=== PATIENT | female | born 1945 | race Caucasian/White ===

== ENCOUNTER 2016-07-18 16:48 | Inpatient (IN) | payer MEDICARE, MEDICAID ==
[~2016-07-18] VITALS: Ht 162.6 cm; Wt 72.3 kg
[~2016-07-18 16:48] MED LIST: ATEN25TA PO; CLON0.5T PO; CLOP75TA2 PO; DEXL60CA3 PO; DICL100G3 TP; DULO60CA45 PO; EZET10TA PO; FLUT1DIS3 IH; HYDR-3026 PO; IBAN150T PO; ISOS60TA4 PO; METO-295 PO; NAPR500T6 PO; OLOP2.5D EACHEYE; OMEP20CA10 PO; QUET150T PO; RAME8TAB9 PO; SIMV40TA5 PO; SUCR1TAB PO; TELM40TA2 PO; TROS20TA3 PO
[2016-07-18] MEDS ORDERED: ONDANSETRON HCL/PF 4 MG/2 ML VIAL IVP ONE (17:00)
[2016-07-18] MEDS ORDERED: IV NS 0.9% 500 ML BAG IV ONE (17:00)
--- NOTE | 2016-07-18 17:05 | NUR ---
PT BIB RA C/O COUGH AND UTI X2 WEEKS. PT REPORTS SHE WAS SEEN BY HER PMD THIS MORNING AND WAS GIVEN "SHOTS" TO TAKE AT HOME. ALREADY COMPLETED 1 ROUND OF PO ABX. RESP EVEN UNLABORED BUT WITH FREQUENT NON-PRODUCTIVE COUGH. SKIN HOT NONDIAPHORETIC. IN ER BED 08 ON MONITOR.
[2016-07-18] MEDS ORDERED: ONDANSETRON HCL/PF 4 MG/2 ML VIAL ONE (17:10)
[2016-07-18] MEDS ORDERED: ACETAMINOPHEN 325 MG TABLET ONE (17:10)
[2016-07-18] MEDS ORDERED: IV NS 0.9% 500 ML IV ONE (17:10)
[2016-07-18] MEDS ORDERED: IV SET PRIMARY 1 EA INFUS.SET MC ONE (17:10)
[2016-07-18] MEDS ORDERED: ACETAMINOPHEN 650 MG/20.3 ML UDC PO ONE (17:30)
[2016-07-18 17:36] LABS: BASOPHILS % (AUTO) 0.1 % (0.0-2.0); CALCIUM, SERUM 9.1 mg/dL (8.5-10.1); EOSINOPHILS % (AUTO) 0.1 % (0.0-6.0); HEMATOCRIT 25 % (33-45); HEMOGLOBIN 8.4 g/dL (11.5-14.8); LYMPHOCYTES % (AUTO) 4.9 % (20.0-44.0); MEAN CORPUSCULAR HEMOGLOBIN 28 PG (26.0-33.0); MEAN CORPUSCULAR HGB CONC 34 g/dl (31.0-36.0); MEAN CORPUSCULAR VOLUME 84 fL (82-100); MONOCYTES # (AUTO) 1.4 /CMM (0.1-1.30); MONOCYTES % (AUTO) 6.8 % (2.0-12.0); NEUTROPHILS # (AUTO) 18.5 /CMM (1.8-8.9); NEUTROPHILS % (AUTO) 88.1 % (43.0-81.0); PLATELET COUNT (AUTO) 522 /CMM (150-450); POTASSIUM 3.6 mmol/L (3.5-5.1); RDW COEFFICIENT OF VARIATION 12.2 (11.5-15.0); RED BLOOD CELL COUNT(AUTO) 2.95 MIL/uL (4.0-5.2); WHITE BLOOD COUNT (AUTO) 20.9 K/uL (4.3-11.0)
[2016-07-18 17:42] LABS: ALBUMIN 2.5 g/dL (3.4-5.0); BILIRUBIN,DIRECT 0.6 mg/dL (0.0-0.2); BILIRUBIN,TOTAL 2.7 mg/dL (0.2-1.0); INR 1.08 (0.87-1.13); PROTHROMBIN TIME 11.2 SECS (9.5-12.7); TOTAL PROTEIN, SERUM 7.8 g/dL (6.4-8.2)
--- NOTE | 2016-07-18 17:59 | NUR ---
PT ATTEMPTING TO PROVIDE URINE SAMPLE BY CLEAN CATCH BUT "IT WENT SIDEWAYS".
[2016-07-18] MEDS ORDERED: CEFEPIME 1 GM in IV D5W 50 ML IV ONE (18:00)
[2016-07-18] MEDS ORDERED: VANCOMYCIN 1 GM in IV D5W 250 ML IV ONE (18:00)
[2016-07-18] MEDS ORDERED: ALBUTEROL FS 2.5 MG/0.5 ML VIAL.NEB ONE (18:07)
[2016-07-18] MEDS ORDERED: IV SET PRIMARY PUMP SET 1 EA INFUS.SET MC ONE (18:10)
[2016-07-18] MEDS ORDERED: ALBUTEROL FS 2.5 MG/0.5 ML VIAL.NEB NEB ONE (18:30)
[2016-07-18 18:32] LABS: APPEARANCE,URINE Clear (CLEAR); BLOOD, URINE Large Ery/uL (NEGATIVE); COLOR,URINE Yellow (YELLOW); KETONES,URINE Negative (NEGATIVE); LEUKOCYTE ESTERASE ,URINE Negative (NEGATIVE); NITRITE, URINE Negative (NEGATIVE); PH,URINE 5.5 (5.0-8.0); PROTEIN,URINE 30 mg/dl (NEGATIVE); UGLUCOSE Negative (NEGATIVE); UROBILINOGEN,URINE >=8.0 EU/dL (0.2)
[2016-07-18 18:43] LABS: BILIRUBIN,URINE SMALL (NEGATIVE)
[2016-07-18 18:45] LABS: ADD URINE CULTURE YES; BACTERIA,URINE Moderate /HPF (None Seen); SQUAMOUS EPITHELIAL CELL,UR Few /HPF (None Seen); WBC,URINE 0-2 /HPF (0-3)
[2016-07-18 18:49] LABS: BAND % (MANUAL) 8 % (0.0-5.0); LYMPHOCYTES % (MANUAL) 8 % (16-48); NEUTROPHILS % (MANUAL) 76 (42-76)
[2016-07-18 18:50] LABS: BASOPHILS % (MANUAL) 0 % (0.0-2.0); EOSINOPHILS % (MANUAL) 0 % (0-4); MONOCYTES % (MANUAL) 4 % (0-11.0); PLATELET ESTIMATE ADEQUATE; REACTIVE LYMPHOCYTES 4 % (0-0)
--- NOTE | 2016-07-18 19:17 | NUR ---
PAGED MARTI WALLER WOOL BROKER PANEL
--- NOTE | 2016-07-18 19:21 | NUR ---
RECEIVED REPORT FROM ER REGARDING NEW ADMISSION, AWAITING ARRIVAL IN UNIT.
[2016-07-18 19:46] VITALS: BP 130/59
--- NOTE | 2016-07-18 19:46 | NUR ---
RECEIVED PATIENT FROM ER, WITH DX OF PNEUMONIA, ALERT AND ORIENTED X4, CALM, NO SOB, NOTED NON-PRODUCTIVE COUGH, 02 SAT ON ROOM AIR DENIES CHEST PAIN, NO OTHER COMPLAIN OF PAIN, ABDOMEN SOFT AND NON-TENDER, ACTIVE BOWEL SOUNDS, ABLE TO VERBALIZE NEEDS, MEDICAL HISTORY GIVEN BY PATIENT, RIGHT AC #18 GAUGE IS PATENT, FLUSHED, DRESSING INTACT. GENERAL SKIN CONDITION IS CLEAR, NO OPEN WOUNDS, NO DISCOLORATION. CONTINENT OF BOWEL AND BLADDER. AMBULATES WITH ONE PERSON ASSIST, PROVIDED BEDSIDE COMMODE. NEEDS HELP GETTING OUT OF BED. ORIENTED TO ROOM, LIGHTS AND USE OF CALL LIGHT.
--- NOTE | 2016-07-18 20:24 | NUR ---
Report given to archana Chapman for nader.
--- NOTE | 2016-07-18 20:47 | NUR ---
Transported to room 325-2 via [facility] protocol, no incident noted. no futher complaints.
[2016-07-18] MEDS ORDERED: MAGNESIUM HYDROXIDE 30 ML UDC PO PRN (21:00)
[2016-07-18] MEDS ORDERED: ACETAMINOPHEN 650 MG/SUPP.RECT RC PRN (21:00)
[2016-07-18] MEDS ORDERED: ACETAMINOPHEN 325 MG TABLET PO PRN (21:00)
[2016-07-18] MEDS ORDERED: ONDANSETRON HCL/PF 4 MG/2 ML VIAL IVP PRN (21:00)
[2016-07-18] MEDS ORDERED: Z GUARD REMEDY 2 OZ OINT TP PRN (21:00)
[2016-07-18] MEDS ORDERED: MAG HYDROX/AL HYDROX/SIMETH 30 ML UDC PO PRN (21:00)
[2016-07-18] MEDS ORDERED: TEMAZEPAM 15 MG CAPSULE PO PRN (21:00)
[2016-07-18] MEDS: CEFEPIME 1 GM in IV D5W 50 ML IV SCH (21:00)
[2016-07-18] MEDS ORDERED: ENOXAPARIN SODIUM 40 MG/0.4 ML DISP.SYRIN SQ ONE (21:22)
[2016-07-18] MEDS ORDERED: IV NS 0.9% 1,000 ML ONE (21:39)
[2016-07-18] MEDS ORDERED: SECONDARY IV SET 1 EA INFUS.SET MC ONE (21:39)
[2016-07-18] MEDS: ENOXAPARIN SODIUM 40 MG/0.4 ML DISP.SYRIN SQ SCH (21:46)
[2016-07-18] MEDS: IV NS 0.9% 1,000 ML IV PRN (21:58)
[2016-07-18] MEDS ORDERED: TEMAZEPAM 7.5 MG CAPSULE PO PRN (23:00)
[2016-07-19] VITALS (16 sets, daily range): BP systolic 110–148; BP diastolic 52–91
[2016-07-19] MEDS ORDERED: IV D5W 50 ML IV ONE (01:40)
--- NOTE | 2016-07-19 01:57 | NUR ---
PATIENT COMPLAINING OF NON-PRODUCTIVE COUGH, NEW ORDER OF ROBITUSSIN 5ML PO Q4HRS PRN. ORDER NOTED AND CARRIED OUT.
[2016-07-19] MEDS ORDERED: GUAIFENESIN/D-METHORPHAN HB 5 ML UDC ONE (02:00)
[2016-07-19] MEDS ORDERED: GUAIFENESIN/CODEINE 10 ML UDC PO PRN (02:00)
[2016-07-19] MEDS: GUAIFENESIN/D-METHORPHAN HB 5 ML UDC PO PRN ×3 (02:05→21:11)
--- NOTE | 2016-07-19 02:19 | NUR ---
PATIENT GIVEN 02 VIA NC, 02 SAT AT ROOM AIR DROPPED TO 93%.
[2016-07-19] MEDS ORDERED: CEFEPIME 1 GM VIAL ONE (03:26)
--- NOTE | 2016-07-19 03:46 | NUR ---
PATIENT RESTING COMFORTABLY IN BED, CALL LIGHT WITHIN REACH.
[2016-07-19] MEDS ORDERED: IPRATROPIUM NEB FS 0.5 MG/2.5 ML AMPUL.NEB NEB PRN (04:00)
[2016-07-19] MEDS ORDERED: ALBUTEROL FS 2.5 MG/0.5 ML VIAL.NEB NEB PRN (04:00)
[2016-07-19] MEDS: CEFEPIME 1 GM in IV D5W 50 ML IV SCH ×3 (04:29→22:04)
[2016-07-19] MEDS ORDERED: ACETAMINOPHEN 325 MG TABLET ONE (04:41)
--- NOTE | 2016-07-19 04:50 | NUR ---
GIVEN TYLENOL 650 MG PO PRN FOR ELEVATED TEMPERATURE OF 100.2F, KEPT SAFE AND COMFORTABLE, CALL LIGHT WITHIN REACH.
--- NOTE | 2016-07-19 05:30 | NUR ---
TEMPERATURE TAKEN AFTER TYLENOL 650 MG PO, 99.5F
--- NOTE | 2016-07-19 06:43 | NUR ---
PATIENT IN BED, ALERT AND AWAKE, CALM, NO RESPIRATORY DISTRESS, NON PRODUCTIVE COUGH NOTED, ON 02 AT 2LPM VIA NC, SATURATION 97%, AFEBRILE AT THIS TIME, LATEST TEMPERATURE 98.3F. LEFT AC PERIPHERAL LINE IS PATENT AND INFUSING WELL, ALL DUE MEDICATIONS GIVEN, CALL LIGHT WITHIN REACH.
[2016-07-19 06:46] LABS: THYROID STIMULATING HORMONE 0.317 uIU/mL (0.358-3.74)
[2016-07-19 06:48] LABS: BASOPHILS % (AUTO) 0.1 % (0.0-2.0); EOSINOPHILS % (AUTO) 0.2 % (0.0-6.0); HEMATOCRIT 23 % (33-45); HEMOGLOBIN 7.4 g/dL (11.5-14.8); LYMPHOCYTES # (AUTO) 0.9 /CMM (0.8-4.8); LYMPHOCYTES % (AUTO) 5.9 % (20.0-44.0); MAGNESIUM 1.8 mg/dL (1.8-2.4); MEAN CORPUSCULAR HEMOGLOBIN 28 PG (26.0-33.0); MEAN CORPUSCULAR HGB CONC 33 g/dl (31.0-36.0); MEAN CORPUSCULAR VOLUME 86 fL (82-100); MONOCYTES # (AUTO) 1.5 /CMM (0.1-1.30); MONOCYTES % (AUTO) 9.3 % (2.0-12.0); NEUTROPHILS # (AUTO) 13.4 /CMM (1.8-8.9); NEUTROPHILS % (AUTO) 84.5 % (43.0-81.0); PHOSPHORUS 2.9 mg/dL (2.5-4.9); PLATELET COUNT (AUTO) 419 /CMM (150-450); POTASSIUM 3.5 mmol/L (3.5-5.1); RDW COEFFICIENT OF VARIATION 13.2 (11.5-15.0); RED BLOOD CELL COUNT(AUTO) 2.62 MIL/uL (4.0-5.2); WHITE BLOOD COUNT (AUTO) 15.9 K/uL (4.3-11.0)
--- NOTE | 2016-07-19 07:30 | NUR ---
PHOTOGRAPHIC DOUBLE NOTES PATIENT IN BED, ALERT AND ORIENTED, OBSERVED WITH COUGHING, NO SOB, DENIES PAIN OR DISCOMFORT AT THIS TIME, ON IVF INFUSING AT 75CC/HR, NEEDS ATTENDED AND MET, BED LOW/LOCKED POSITION, SIDERAILS X2 UP, CALL LIGHT WITHIN REACH, WILL CONTINUE TO MONITOR.
[2016-07-19] MEDS: SUCRALFATE 1 G TABLET PO SCH (08:34)
[2016-07-19] MEDS: DULOXETINE HCL 30 MG CAPSULE.DR PO SCH (08:34)
[2016-07-19] MEDS: VALSARTAN 40 MG TABLET PO SCH ×2 (08:35→21:11)
[2016-07-19] MEDS: PANTOPRAZOLE 40 MG TABLET.DR PO SCH (08:35)
[2016-07-19] MEDS: ATENOLOL 25 MG TABLET PO SCH ×2 (08:36→17:26)
[2016-07-19] MEDS: QUETIAPINE FUMARATE 100 MG TABLET PO SCH (08:36)
[2016-07-19] MEDS: CLOPIDOGREL BISULFATE 75 MG TABLET PO SCH (08:37)
[2016-07-19] MEDS: EZETIMIBE 10 MG TABLET PO SCH (08:37)
[2016-07-19] MEDS: ISOSORBIDE MONONITRATE 20 MG TABLET PO SCH (08:59)
[2016-07-19] MEDS ORDERED: VANCOMYCIN 0.75 GM in IV D5W 250 ML IV SCH (09:00)
[2016-07-19] MEDS ORDERED: FEE PK DOSING 1 MIN EA MC ONE (09:06)
[2016-07-19] MEDS ORDERED: SECONDARY IV SET 1 EA INFUS.SET MC ONE (09:29)
[2016-07-19] MEDS: OLOPATADINE HCL 0.1% OPHTH BOTTLE EACHEYE SCH (09:34)
[2016-07-19] MEDS: FLUTICASONE/SALMETEROL DISKUS IH SCH ×2 (09:34→17:26)
--- NOTE | 2016-07-19 09:45 | NUR ---
MASTER MECHANIC NOTES PATIENT SEEN BY MARTI WALLER NP AND RECEIVED NEW ORDERS. ORDER NOTED AND CARRIED OUT. MARTI HAYDEN DISCUSSED BLOOD TRANSFUSION WITH THE PATIENT AND PATIENT AGREED, CONSENT SIGNED.
[2016-07-19] MEDS: IV NS 0.9% 1,000 ML IV PRN (10:54)
[2016-07-19] MEDS ORDERED: BLOOD IV SET 1 EA INFUS.SET MC ONE (11:33)
[2016-07-19 11:35] LABS: BASOPHILS % (AUTO) 0.1 % (0.0-2.0); EOSINOPHILS # (AUTO) 0.1 /CMM (0.0-0.7); EOSINOPHILS % (AUTO) 0.5 % (0.0-6.0); HEMATOCRIT 23 % (33-45); HEMOGLOBIN 7.4 g/dL (11.5-14.8); LYMPHOCYTES # (AUTO) 1.1 /CMM (0.8-4.8); LYMPHOCYTES % (AUTO) 7.8 % (20.0-44.0); MEAN CORPUSCULAR HEMOGLOBIN 28 PG (26.0-33.0); MEAN CORPUSCULAR HGB CONC 32 g/dl (31.0-36.0); MEAN CORPUSCULAR VOLUME 86 fL (82-100); MONOCYTES # (AUTO) 1.3 /CMM (0.1-1.30); MONOCYTES % (AUTO) 9.3 % (2.0-12.0); NEUTROPHILS # (AUTO) 11.3 /CMM (1.8-8.9); NEUTROPHILS % (AUTO) 82.3 % (43.0-81.0); PLATELET COUNT (AUTO) 405 /CMM (150-450); RDW COEFFICIENT OF VARIATION 13.3 (11.5-15.0); RED BLOOD CELL COUNT(AUTO) 2.66 MIL/uL (4.0-5.2); WHITE BLOOD COUNT (AUTO) 13.8 K/uL (4.3-11.0)
[2016-07-19] MEDS ORDERED: IV NS 0.9% 250 ML IV ONE (14:00)
--- NOTE | 2016-07-19 14:42 | NUR ---
ENVIRONMENTAL ISSUES INSTRUCTOR NOTES PATIENT STARTED ON BLOOD TRANSFUSION, CONSENT SIGNED AND PLACED IN CHART, VITAL SIGNS STABLE, WILL CLOSELY MONITOR FOR ADVERSE SIDE EFFECT, CALL LIGHT PLACED WITHIN REACH, SAFETY MEASURES IN PLACED, SON AT BEDSIDE.
[2016-07-19] MEDS ORDERED: LEVOFLOXACIN 750 MG /D5W 150ML 150 ML IV SCH (15:30)
[2016-07-19] MEDS ORDERED: AZITHROMYCIN 250 MG TABLET PO ONE (16:00)
--- NOTE | 2016-07-19 16:17 | NUR ---
MOTOR VEHICLES SUPERVISOR NOTES BLOOD TRANSFUSION ONGOING AT THIS TIME, IN STABLE CONDITION, NO ADVERSE EFECT NOTED, PATIENT DENIES ANY HEADACHE, NAUSEA, VOMITING, OR ANY DISTRESS AT THIS TIME. VITAL SIGNS STABLE, WILL CONTINUE TO MONITOR.
--- NOTE | 2016-07-19 18:46 | NUR ---
MIXER AND SCALER NOTES PATIENT COMPLETED BLOOD TRANSFUSION WITH NO REACTION, STILL NEEDS STOOL SAMPLE AND PATIENT AWARE, IVF INFUSING 75ML/HR AND TOLERATING WELL, VITAL SIGNS STABLE, RECEIVED ASSISTANCE WITH ADLS, CALL LIGHT PLACED WITHIN REACH, SAFETY MEASURES IN PLACED, WILL ENDORSE TO CHIEF ENGINEERING DIVISION FOR MARAL.
[2016-07-19] MEDS: ALBUTEROL FS 2.5 MG/0.5 ML VIAL.NEB NEB SCH (19:30)
[2016-07-19] MEDS: IPRATROPIUM NEB FS 0.5 MG/2.5 ML AMPUL.NEB NEB SCH (19:30)
--- NOTE | 2016-07-19 19:30 | NUR ---
REFUSED BREATHING TX AT THIS TIME, EXPLAINED TO PATIENT RISKS AND BENEFITS, OFFERED X3. WILL TRY AGAIN ON THE NEXT SCHEDULE
--- NOTE | 2016-07-19 20:00 | NUR ---
RECEIVED PATIENT IN BED, ALERT AND ORIENTED X4, CALM, NO SOB, ON 2LPM VIA NC, 02 SAT 97%, DENIES ANY PAIN AT THIS TIME, S/P BLOOD TRANSFUSION, NO ADVERSE SIDE EFFECTS NOTED. ABLE TO AMBULATE TO THE TOILET WITH SUPERVISION, V/S WITHIN NORMAL LIMITS, KEPT SAFE AND COMFORTABLE, CALL LIGHT WITHIN REACH.
--- NOTE | 2016-07-19 21:00 | NUR ---
PATIENT NOTIFIED RN, RIGHT AC PERIPHERAL LINE IS LEAKING. WILL START NEW IV LINE.
[2016-07-19] MEDS: SIMVASTATIN 40 MG TABLET PO SCH (21:11)
[2016-07-19] MEDS: ENOXAPARIN SODIUM 40 MG/0.4 ML DISP.SYRIN SQ SCH (21:13)
[2016-07-20 00:09] VITALS: BP 126/52
[2016-07-20] MEDS: IPRATROPIUM NEB FS 0.5 MG/2.5 ML AMPUL.NEB NEB SCH ×4 (01:25→19:50)
[2016-07-20] MEDS: ALBUTEROL FS 2.5 MG/0.5 ML VIAL.NEB NEB SCH ×4 (01:25→19:50)
[2016-07-20] MEDS: GUAIFENESIN/D-METHORPHAN HB 5 ML UDC PO PRN (02:43)
--- NOTE | 2016-07-20 02:47 | NUR ---
PATIENT COMPLAINING OF DRY, NON-PRODUCTIVE COUGH, GIVEN ROBITUSSIN 5ML PO PRN, KEPT HOB ELEVATED, KEPT COMFORTABLE, CALL LIGHT WITHIN REACH.
[2016-07-20] MEDS: IV NS 0.9% 1,000 ML IV PRN (03:44)
[2016-07-20 04:00] VITALS: BP 116/51
[2016-07-20] MEDS: CEFEPIME 1 GM in IV D5W 50 ML IV SCH ×3 (04:05→22:05)
--- NOTE | 2016-07-20 06:35 | NUR ---
PATIENT IN BED, ALERT AND ORIENTED X4, CALM, NO SOB, NO DISTRESS, ON 2LPM VIA NC TO KEEP 02 SAT > 93%, DENIES ANY PAIN AT THIS TIME, WITH EPISODES OF DRY COUGH, PROVIDED COUGH MEDICATION, ASSISTED TO TOILET, ALL DUE MEDICATIONS GIVEN, NEEDS ATTENDED, CALL LIGHT WITHIN REACH.
[2016-07-20 07:16] LABS: BASOPHILS % (AUTO) 0.1 % (0.0-2.0); EOSINOPHILS # (AUTO) 0.1 /CMM (0.0-0.7); HEMATOCRIT 27 % (33-45); HEMOGLOBIN 8.6 g/dL (11.5-14.8); LYMPHOCYTES # (AUTO) 1.4 /CMM (0.8-4.8); LYMPHOCYTES % (AUTO) 10.8 % (20.0-44.0); MEAN CORPUSCULAR HEMOGLOBIN 28 PG (26.0-33.0); MEAN CORPUSCULAR HGB CONC 32 g/dl (31.0-36.0); MEAN CORPUSCULAR VOLUME 88 fL (82-100); MONOCYTES # (AUTO) 1.1 /CMM (0.1-1.30); MONOCYTES % (AUTO) 8.6 % (2.0-12.0); NEUTROPHILS # (AUTO) 10.2 /CMM (1.8-8.9); NEUTROPHILS % (AUTO) 79.5 % (43.0-81.0); PLATELET COUNT (AUTO) 381 /CMM (150-450); RDW COEFFICIENT OF VARIATION 13.1 (11.5-15.0); RED BLOOD CELL COUNT(AUTO) 3.06 MIL/uL (4.0-5.2); WHITE BLOOD COUNT (AUTO) 12.8 K/uL (4.3-11.0)
--- NOTE | 2016-07-20 07:30 | NUR ---
MS RN RECEIVED ON BED, AWAKE,ALERT,ORIENTED X 4, NOT IN ANY FORM OF DISTRESS, RESPIRATIONS EVEN AND UNLABORED,NO SOB NOTED. ABDOMEN SOFT, POSITIVE BOWEL SOUNDS, DENIES PAIN AT THIS TIME, ALL NEEDS ATTENDED.
[2016-07-20 08:00] VITALS: BP 142/82
[2016-07-20 08:01] LABS: CALCIUM, SERUM 8.2 mg/dL (8.5-10.1); CREATININE 0.8 mg/dL (0.6-1.3); POTASSIUM 3.6 mmol/L (3.5-5.1)
--- NOTE | 2016-07-20 08:40 | NUR ---
MS AMARO BREAKFAST SERVED, DUE MEDS GIVEN, TOLERATED WELL.
[2016-07-20] MEDS: CLOPIDOGREL BISULFATE 75 MG TABLET PO SCH (08:42)
[2016-07-20] MEDS: EZETIMIBE 10 MG TABLET PO SCH (08:43)
[2016-07-20] MEDS: VALSARTAN 40 MG TABLET PO SCH ×2 (08:44→22:10)
[2016-07-20] MEDS: ATENOLOL 25 MG TABLET PO SCH ×2 (08:45→17:13)
[2016-07-20] MEDS: PANTOPRAZOLE 40 MG TABLET.DR PO SCH (08:46)
[2016-07-20] MEDS: SUCRALFATE 1 G TABLET PO SCH (08:46)
[2016-07-20] MEDS: DULOXETINE HCL 30 MG CAPSULE.DR PO SCH (08:46)
[2016-07-20] MEDS: ISOSORBIDE MONONITRATE 20 MG TABLET PO SCH (08:46)
[2016-07-20] MEDS: QUETIAPINE FUMARATE 100 MG TABLET PO SCH (08:47)
[2016-07-20] MEDS: FLUTICASONE/SALMETEROL DISKUS IH SCH ×2 (08:58→17:12)
[2016-07-20] MEDS: OLOPATADINE HCL 0.1% OPHTH BOTTLE EACHEYE SCH (08:58)
--- NOTE | 2016-07-20 15:06 | NUR ---
SW received a call from nursing drapery supervisor Eli requesting for SW to speak with pt. per BLENDING TANK HELPER Gary regarding her housing situation. Pt. lives on the 4th floor and Gary requested if SW could assist pt. in some way to move to the first floor in her apartment building. SW met with pt. bedside. Pt. is A&O x 4. Pt. is friendly and polite with SW during the assessment. Pt. informed SW she lives in a Section 8 housing apartment in [place] and is comfortable at this time in her two bedroom apartment. Pt. informed SW she does not want to cause any issues with her Section 8 housing and end up losing it. Pt. informed SW she has her daughter who can assist her as well. OBDULIA gave pt. her business card per pt's request.
[2016-07-20 16:00] VITALS: BP 129/47
[2016-07-20] MEDS: LACTOBACILLUS RHAMNOSUS GG 1 EACH CAP.SPRINK PO SCH (17:12)
[2016-07-20] MEDS: AZITHROMYCIN 250 MG TABLET PO SCH (17:12)
--- NOTE | 2016-07-20 17:31 | NUR ---
MS RN ON BED, NO DISTRSS NOTED,ALL NEEDS ATTENDED.
[2016-07-20 19:00] VITALS: BP 121/58
--- NOTE | 2016-07-20 19:00 | NUR ---
LIVESTOCK BREEDER OPENING NOTES RECEIVED PATIENT IN BED, AWAKE, BREATHING TREATMENT TOLERATED WELL. IV SITE INTACT WITH NO S/S OF INFILTRATION NOTED. NO S/S OF BLEEDING NOTED. NO S/S OF DISTRESS, NO CHEST PAIN IN STABLE CONDITION. KEPT CLEAN DRY AND COMFORTABLE. SAFE HAZARD FREE ENVIRONMENT PROVIDED. WILL CONTINUE TO MONITOR PATIENT.
[2016-07-20 20:00] VITALS: BP 121/58
[2016-07-20] MEDS: SIMVASTATIN 40 MG TABLET PO SCH (22:10)
[2016-07-20] MEDS: ENOXAPARIN SODIUM 40 MG/0.4 ML DISP.SYRIN SQ SCH (22:16)
[2016-07-21] VITALS: BP 146/70
[2016-07-21] MEDS: clonazePAM 0.5 MG TABLET PO PRN ×2 (00:10→00:14)
--- NOTE | 2016-07-21 00:15 | NUR ---
0010 PATIENT REQUESTED KLONOPIN 0.5 MG FOR ANXIETY UPON GIVING AND POP MEDICINE PATIENT DECIDED NOT TO TAKE IT ANYMORE. RISKS AND BENEFITS EXPLAINED OFFERED 3X, PATIENT CHANGE MIND NOT TO TAKE IT. I WILL BE WASTING THE MEDICINE WITH THE CHARGE NURSE IN THE [place].
[2016-07-21] MEDS: ALBUTEROL FS 2.5 MG/0.5 ML VIAL.NEB NEB SCH ×4 (00:53→19:58)
[2016-07-21] MEDS: IPRATROPIUM NEB FS 0.5 MG/2.5 ML AMPUL.NEB NEB SCH ×4 (00:53→19:58)
[2016-07-21] MEDS: IV NS 0.9% 1,000 ML IV PRN (03:23)
[2016-07-21 04:00] VITALS: BP_SYST 154; BP_SYST 159; BP_DIAS 68
[2016-07-21] MEDS: CEFEPIME 1 GM in IV D5W 50 ML IV SCH ×3 (05:08→21:12)
--- NOTE | 2016-07-21 06:39 | NUR ---
VICE PRESIDENT NETWORK CLOSING NOTES PATIENT COMFORTABLY ASLEEP AND EASILY AWAKEN, HEAD OF BED ELEVATED FOR BETTER LUNG EXPANSION ON 2L NC, 02 SAT 100% BREATHING TREATMENT TOLERATED WELL. IV HYDRATION ONGOING NS AT 75 CC, IV SITE NO S/S OF INFILTRATED, PATIENT DENIES PAIN AT THIS TIME. 0/10 RESPIRATIONS EVEN AND UNLABORED. NO S/S OF ACUTE DISTRESS, NO SOB, NO COUGH, NO CONGESTION, SKIN WARM AND DRY TO TOUCH, AFEBRILE, ALL NURSING CARE NEEDS PROVIDED AND RENDERED, NEEDS ATTENDED AND ANTICIPATED, KEPT CLEAN AND DRY AND COMFORTABLE, BLADDER NOT DISTENDED, URINATED 3X, AMB WITH ASSIST. TREATMENT ORDERED. GOOD SKIN CARE PROVIDED. ABDOMEN SOFT AND NON TENDER. NO C/O OF CONSTIPATION. ALL DUE MEDS WAS GIVEN TOLERATED. FREQUENT VISUAL CHECK DONE FOR SAFETY EVERY 2 HOURS. REPOSITIONED EVERY 2 HOURS FOR COMFORT AND SKIN MGT. SAFE HAZARD FREE ENVIRONMENT PROVIDED. CALL LIGHT WITHIN EASY TO REACH, ON LOW BED AT ALL TIMES TO ENSURE SAFETY, WILL ENDORSE TO THE NEXT SHIFT CONTINUE PLAN OF CARE.
--- NOTE | 2016-07-21 07:05 | NUR ---
TELE/RN AM NOTES RECEIVED PATIENT IN BED, AWAKE, ALERT, WITHOUT SOB, NO CHEST PAIN, OXYGEN IN PLACE VIA N/C TOLERATING WELL, NO S/SX DISTRESS, RESTING COMFORTABLY. IV LINE RAC INTACT, PATENT. BED IN LOW POSITION, 2 SR UP FOR SAFETY. WITH CALL LIGHT WITHIN EASY REACH. WILL CONTINUE TO MONITOR ACCORDINGLY.
[2016-07-21 07:25] LABS: BASOPHILS % (AUTO) 0.3 % (0.0-2.0); EOSINOPHILS # (AUTO) 0.1 /CMM (0.0-0.7); EOSINOPHILS % (AUTO) 1.1 % (0.0-6.0); HEMATOCRIT 26 % (33-45); HEMOGLOBIN 8.3 g/dL (11.5-14.8); LYMPHOCYTES # (AUTO) 1.4 /CMM (0.8-4.8); LYMPHOCYTES % (AUTO) 12.9 % (20.0-44.0); MEAN CORPUSCULAR HEMOGLOBIN 28 PG (26.0-33.0); MEAN CORPUSCULAR HGB CONC 32 g/dl (31.0-36.0); MEAN CORPUSCULAR VOLUME 87 fL (82-100); MONOCYTES # (AUTO) 0.8 /CMM (0.1-1.30); MONOCYTES % (AUTO) 7.6 % (2.0-12.0); NEUTROPHILS # (AUTO) 8.5 /CMM (1.8-8.9); NEUTROPHILS % (AUTO) 78.1 % (43.0-81.0); PLATELET COUNT (AUTO) 412 /CMM (150-450); RED BLOOD CELL COUNT(AUTO) 2.94 MIL/uL (4.0-5.2); WHITE BLOOD COUNT (AUTO) 10.9 K/uL (4.3-11.0)
[2016-07-21 07:40] LABS: CALCIUM, SERUM 8.3 mg/dL (8.5-10.1); CREATININE 0.9 mg/dL (0.6-1.3); POTASSIUM 3.3 mmol/L (3.5-5.1)
[2016-07-21 08:00] VITALS: BP 155/61
[2016-07-21] MEDS: PANTOPRAZOLE 40 MG TABLET.DR PO SCH (08:28)
[2016-07-21] MEDS: EZETIMIBE 10 MG TABLET PO SCH (08:53)
[2016-07-21] MEDS: VALSARTAN 40 MG TABLET PO SCH ×2 (08:54→21:41)
[2016-07-21] MEDS: ATENOLOL 25 MG TABLET PO SCH ×2 (08:54→17:05)
[2016-07-21] MEDS: LACTOBACILLUS RHAMNOSUS GG 1 EACH CAP.SPRINK PO SCH ×2 (08:54→17:06)
[2016-07-21] MEDS: CLOPIDOGREL BISULFATE 75 MG TABLET PO SCH (08:55)
[2016-07-21] MEDS: SUCRALFATE 1 G TABLET PO SCH (08:57)
[2016-07-21] MEDS: QUETIAPINE FUMARATE 100 MG TABLET PO SCH (08:57)
[2016-07-21] MEDS: ISOSORBIDE MONONITRATE 20 MG TABLET PO SCH (08:57)
[2016-07-21] MEDS: DULOXETINE HCL 30 MG CAPSULE.DR PO SCH (08:57)
--- NOTE | 2016-07-21 09:01 | NUR ---
RN NOTES PATIENT REFUSED MORNING SEROQUEL, CYMBALTA, CARAFATE, ISOSORBIDE. INFORMED MD
[2016-07-21] MEDS: OLOPATADINE HCL 0.1% OPHTH BOTTLE EACHEYE SCH (09:14)
[2016-07-21 10:00] VITALS: BP 155/71
[2016-07-21] MEDS ORDERED: POTASSIUM CHLORIDE 20 MEQ POWDER PACKET PO ONE (10:00)
[2016-07-21] MEDS: FLUTICASONE/SALMETEROL DISKUS IH SCH ×2 (10:40→17:06)
[2016-07-21 13:59] LABS: IRON, SERUM 44 ug/dl (50-175); TOTAL IRON BINDING CAPACITY 119 ug/dl (250-450)
[2016-07-21 16:00] VITALS: BP 137/68
[2016-07-21] MEDS: AZITHROMYCIN 250 MG TABLET PO SCH (17:06)
--- NOTE | 2016-07-21 18:54 | NUR ---
RN CLOSING NOTES PATIENT IS SITTING ON THE CHAIR, NEXT TO HER BED, NO SOB, DENIES CHEST PAIN, COMFORTABLE, ON OXYGEN 2L/M VIA N/C TOLERATING WELL. IV LINE RAC INTACT, PATENT. KEPT CLEAN DRY, COMFORTABLE, NEEDS MET IN TIMELY MANNER , WITH CALL LIGHT WITHIN EASY REACH ALL THE TIME. WILL ENDORSE TO THE BAND TUMBLER NURSE ACCORDINGLY FOR MARAL
--- NOTE | 2016-07-21 19:25 | NUR ---
MS/PUBLIC RELATIONS STUDIES DIRECTOR; RECEIVED PT SITTING ON THE CHAIR. COUGHING NOTED. IVF ON PROGRESS. DENIES PAIN. BED ON LOWER POSITION AND LOCKED FOR SAFETY. SIDE RAILS UPPER PART OF BED ARE UP FOR SAFETY. PT INSTRUCTED TO CALL FOR HELP AND CALL LIGHT WITHIN REACH. CONTINUE TO MONITOR.WITH O2 2L NC ON.
[2016-07-21 20:00] VITALS: BP 134/68
[2016-07-21] MEDS: GUAIFENESIN/D-METHORPHAN HB 5 ML UDC PO PRN (20:26)
[2016-07-21] MEDS: SIMVASTATIN 40 MG TABLET PO SCH (21:42)
[2016-07-21] MEDS: ENOXAPARIN SODIUM 40 MG/0.4 ML DISP.SYRIN SQ SCH (22:01)
[2016-07-21] MEDS ORDERED: PEG 3350/NA SULF,BICARB,CL/KCL 4,000 ML BOTTLE PO ONE (23:30)
[2016-07-21] MEDS ORDERED: PEG 3350/NA SULF,BICARB,CL/KCL 4,000 ML BOTTLE ONE (23:34)
--- NOTE | 2016-07-21 23:50 | NUR ---
MS/ASBESTOS WORKER HELPER; CHARGE NURSE TOLD ME THAT DR. TURK CALLED REGARDING THIS PT. FOR COLONOSCOPY WITH ORDER FOR GOLYTELY. CHARGE NURSE STARTED THE GOLYTELY TO THIS PT. AND PT STARTED TO DRINK. ALSO ON NPO.
--- NOTE | 2016-07-22 00:50 | NUR ---
MS/TURRET PUNCH PRESS OPERATOR; NEW IV LINE STARTED OM LWA # 20 AND IVF RESUMED.
[2016-07-22] MEDS: IPRATROPIUM NEB FS 0.5 MG/2.5 ML AMPUL.NEB NEB SCH ×4 (02:02→19:34)
[2016-07-22] MEDS: ALBUTEROL FS 2.5 MG/0.5 ML VIAL.NEB NEB SCH ×4 (02:03→19:34)
[2016-07-22] MEDS: CEFEPIME 1 GM in IV D5W 50 ML IV SCH ×3 (04:26→21:31)
--- NOTE | 2016-07-22 04:27 | NUR ---
RN NOTES: IV CEFEPIME 1GRAM GIVEN.IV SITE PATENT.
--- NOTE | 2016-07-22 07:00 | NUR ---
MS/MIDDLEWARE CONSULTANT; PT HAS SEVERAL LIQUID STOOL NOT SO CLEAR BROWN COLOR WITH SOME PARTICLES. PT WAS NOT ABLE TO TOLERATE THE ENTIRE GOLYTELY. I SPOKE WITH DR. TURK REGARDING THE GOLYTELY RESULT AND HE SAID TO GIVE TOP WATER ENEMA UNTIL CLEAR. PT NPO OBSERVED. CONTINUE TO MONITOR. WILL ENDORSE TO THE DAY SHIT NURSE OF THE [facility] TO BE GIVEN.
[2016-07-22] MEDS: PANTOPRAZOLE 40 MG TABLET.DR PO SCH (07:30)
--- NOTE | 2016-07-22 07:35 | NUR ---
RN MS NOTES PATIENT ALERT AND ORIENTED, ABLE TO VERBALIZE NEEDS, ON IVF INFUSING AT 75ML/HR, PATIENT IS CURRENTLY NPO AT THIS TIME, SCHEDULED FOR COLONOSCOPY THIS AFTERNOON, TAP WATER NEEDS TO BE ADMINISTERED UNTIL STOOL IS CLEAR, SAFETY MEASURES IN PALCED, CALL LIGHT WITHIN REACH, WILL CONTINUE TO MONITOR.
[2016-07-22 07:53] LABS: CALCIUM, SERUM 8.7 mg/dL (8.5-10.1); CREATININE 0.8 mg/dL (0.6-1.3); POTASSIUM 3.7 mmol/L (3.5-5.1)
[2016-07-22 08:00] VITALS: BP 157/69
[2016-07-22] MEDS: LACTOBACILLUS RHAMNOSUS GG 1 EACH CAP.SPRINK PO SCH ×2 (08:31→16:02)
[2016-07-22] MEDS: VALSARTAN 40 MG TABLET PO SCH ×2 (08:31→21:32)
[2016-07-22] MEDS: FLUTICASONE/SALMETEROL DISKUS IH SCH ×3 (08:31→16:05)
[2016-07-22] MEDS: DULOXETINE HCL 30 MG CAPSULE.DR PO SCH (08:31)
[2016-07-22] MEDS: SUCRALFATE 1 G TABLET PO SCH (08:31)
[2016-07-22] MEDS: ISOSORBIDE MONONITRATE 20 MG TABLET PO SCH (08:32)
[2016-07-22] MEDS: CLOPIDOGREL BISULFATE 75 MG TABLET PO SCH (08:33)
[2016-07-22] MEDS: ATENOLOL 25 MG TABLET PO SCH ×2 (08:33→16:03)
[2016-07-22] MEDS: EZETIMIBE 10 MG TABLET PO SCH (08:33)
[2016-07-22] MEDS: QUETIAPINE FUMARATE 100 MG TABLET PO SCH (08:33)
[2016-07-22] MEDS: OLOPATADINE HCL 0.1% OPHTH BOTTLE EACHEYE SCH (08:56)
--- NOTE | 2016-07-22 10:00 | NUR ---
RN MS NOTES PATIENT GIVEN TAP ENEMA X3, AND SUCCESSFUL, PATIENT WITH CLEAR LIQUID OUTPUT. INFORMED DR. TURK.
--- NOTE | 2016-07-22 13:30 | NUR ---
RN MS NOTES PATIENT TRANSFERRED TO OR FOR COLONOSCOPY.
[2016-07-22] MEDS ORDERED: ANESTHESIA TRAY IN PYXIS 1 EA TRAY MC ONE (15:10)
--- NOTE | 2016-07-22 15:10 | NUR ---
RN MS NOTES PATIENT CAME BACK FROM COLONOSCOPY, IN STABLE CONDITION, RECEIVED NEW ORDER TO RESUME REGULAR DIET ORDERED. ORDER NOTED AND CARRIED OUT, PATIENT DENIES PAIN OR DISCOMFORT AT THIS TIME, WILL CONTINUE TO MONITOR.
[2016-07-22] MEDS: IV NS 0.9% 1,000 ML IV PRN (15:29)
[2016-07-22] MEDS: AZITHROMYCIN 250 MG TABLET PO SCH (15:33)
[2016-07-22] MEDS: GUAIFENESIN/D-METHORPHAN HB 5 ML UDC PO PRN (15:33)
[2016-07-22 16:00] VITALS: BP 154/68
--- NOTE | 2016-07-22 19:00 | NUR ---
RN MS NOTES PATIENT SITTING ON THE CHAIR, ALERT AND ORIENTED, NO DISTRESS NOTED, NO C/O PAIN OR DISCOMFORT NOTED, STILL NOTED WITH COUGHING, IVF RUNNING AT 75ML/HR, FAMILY AT BEDSIDE, CALL LIGHT WITHINR EACH, SAFETY MEASURES IN PLACED, WILL ENDORSE TO ORDER PACKER OR PACKAGER FOR MARAL.
--- NOTE | 2016-07-22 19:20 | NUR ---
RN NOTES RECEIVED PATIENT SITTING IN CHAIR. A/O X4. NO SIGNS OF DISTRESS OR DISCOMFORT. BREATHING EVEN AND UNLABORED. IV ACCESS IN L WRIST, PATENT AND INTACT. NO SIGNS OF REDNESS OR INFILTRATION. BED IN LOW LOCKED POSITION WITH SIDE RAILS X2. CALL LIGHT WITHIN REACH. WILL CONTINUE TO MONITOR.
[2016-07-22 20:00] VITALS: BP 137/75
[2016-07-22] MEDS: SIMVASTATIN 40 MG TABLET PO SCH (21:32)
[2016-07-22] MEDS: ENOXAPARIN SODIUM 40 MG/0.4 ML DISP.SYRIN SQ SCH (21:35)
[2016-07-23] MEDS: IPRATROPIUM NEB FS 0.5 MG/2.5 ML AMPUL.NEB NEB SCH ×2 (00:58→08:10)
[2016-07-23] MEDS: ALBUTEROL FS 2.5 MG/0.5 ML VIAL.NEB NEB SCH ×2 (00:58→08:10)
[2016-07-23] MEDS: CEFEPIME 1 GM in IV D5W 50 ML IV SCH (05:12)
--- NOTE | 2016-07-23 06:56 | NUR ---
RN CLOSING NOTES PATIENT AWAKE SITTING IN CHAIR. A/O X4. NO SIGNS OF DISTRESS OR DISCOMFORT. BREATHING EVEN AND UNLABORED. IV ACCESS IN L WRIST, PATENT AND INTACT. NO SIGNS OF REDNESS OR INFILTRATION. ALL NEEDS MET. NO SIGNIFICANT CHANGES THROUGH THE NIGHT. BED IN LOW LOCKED POSITION WITH SIDE RAILS X2. CALL LIGHT WITHIN REACH. WILL ENDORSE TO AM SHIFT FOR MARAL.
[2016-07-23 07:04] LABS: CALCIUM, SERUM 8.5 mg/dL (8.5-10.1); CREATININE 0.8 mg/dL (0.6-1.3); POTASSIUM 3.9 mmol/L (3.5-5.1)
--- NOTE | 2016-07-23 07:30 | NUR ---
RECEIVED PT. ALERT AND ORIENTED X4. NO COMPLAINTS OFFERED.VS STABLE.
[2016-07-23 08:00] VITALS: BP 143/67
[2016-07-23] MEDS: ISOSORBIDE MONONITRATE 20 MG TABLET PO SCH ×2 (09:00→09:39)
[2016-07-23] MEDS: DULOXETINE HCL 30 MG CAPSULE.DR PO SCH ×2 (09:00→09:40)
[2016-07-23] MEDS: SUCRALFATE 1 G TABLET PO SCH ×2 (09:00→09:42)
[2016-07-23] MEDS: QUETIAPINE FUMARATE 100 MG TABLET PO SCH ×2 (09:00→09:39)
[2016-07-23] MEDS: FLUTICASONE/SALMETEROL DISKUS IH SCH (09:38)
[2016-07-23] MEDS: EZETIMIBE 10 MG TABLET PO SCH (09:40)
[2016-07-23] MEDS: CLOPIDOGREL BISULFATE 75 MG TABLET PO SCH (09:40)
[2016-07-23] MEDS: PANTOPRAZOLE 40 MG TABLET.DR PO SCH (09:41)
[2016-07-23] MEDS: VALSARTAN 40 MG TABLET PO SCH (09:41)
[2016-07-23] MEDS: LACTOBACILLUS RHAMNOSUS GG 1 EACH CAP.SPRINK PO SCH (09:41)
[2016-07-23] MEDS: OLOPATADINE HCL 0.1% OPHTH BOTTLE EACHEYE SCH (09:43)
[2016-07-23 09:53] VITALS: BP 143/67
[2016-07-23] MEDS: ATENOLOL 25 MG TABLET PO SCH (09:53)
--- NOTE | 2016-07-23 10:30 | NUR ---
MARTI WALLER STRATEGY CONSULTANT IN TO SEE PT. ORDERS FOR DC.PAPERWORK MADE READY.
[2016-07-23] MEDS: GUAIFENESIN/D-METHORPHAN HB 5 ML UDC PO PRN (11:01)
--- NOTE | 2016-07-23 11:05 | NUR ---
ROBITUSSIN GIVEN FOR COUGH.
--- NOTE | 2016-07-23 12:25 | NUR ---
SON HERE,GIVEN ALL DC INSTRUCTIONS AND RX.AWARE TO FOLLOW UP WITH DR. TURK.HEP LOCK OUT BELONGING SHEET SIGNED. TAKEN TO LOBBY VIA W/C ACC. BY JOSEPH AND PHIL.
[2016-07-23] MEDS ORDERED: CEFEPIME 2 GM in IV D5W 100 ML IV SCH (15:00)
== END 2016-07-23 12:25 | disposition home or self-care (01) | DRG 871 ==
LOC: ER 16:49 → TELE 20:19 → MED 20:56 → TELE 07-19 01:29 → MED 07-21 10:43
PROVIDERS: ADMIT Nurse Practitioner Acute Care; ATTEND Nurse Practitioner Acute Care
PROC: 30233N1 Transfusion of Nonautologous Red Blood Cells into Peripheral Vein, Percutaneous Approach (ICD-10-PCS; principal; 2016-07-18)
PROC: 0DBE8ZX Excision of Large Intestine, Via Natural or Artificial Opening Endoscopic, Diagnostic (ICD-10-PCS; 2016-07-22)
DX: A41.9 Sepsis, unspecified organism (principal); I50.33 Acute on chronic diastolic (congestive) heart failure; J15.9 Unspecified bacterial pneumonia; E87.1 Hypo-osmolality and hyponatremia; J45.901 Unspecified asthma with (acute) exacerbation; N39.0 Urinary tract infection, site not specified; J90 Pleural effusion, not elsewhere classified; K55.9 Vascular disorder of intestine, unspecified; J98.11 Atelectasis; D64.9 Anemia, unspecified; E78.5 Hyperlipidemia, unspecified; F32.9 Major depressive disorder, single episode, unspecified; F41.9 Anxiety disorder, unspecified; I25.10 Atherosclerotic heart disease of native coronary artery without angina pectoris; K21.9 Gastro-esophageal reflux disease without esophagitis; M81.0 Age-related osteoporosis without current pathological fracture; G47.33 Obstructive sleep apnea (adult) (pediatric); E66.01 Morbid (severe) obesity due to excess calories; K52.9 Noninfective gastroenteritis and colitis, unspecified; M79.7 Fibromyalgia; I11.0 Hypertensive heart disease with heart failure; Z96.659 Presence of unspecified artificial knee joint; E11.9 Type 2 diabetes mellitus without complications; D50.0 Iron deficiency anemia secondary to blood loss (chronic); K31.7 Polyp of stomach and duodenum; M19.90 Unspecified osteoarthritis, unspecified site
CPT/HCPCS: 36415; 71010-TC; 80048-TC; 80061-TC; 80076-TC; 81000-TC; 83540-TC; 83605-TC; 83690-TC; 83735-TC; 84100-TC; 84439-TC; 84443-TC; 84480; 85025-TC; 85730-TC; 86850-TC; 86921-TC; 87040-TC; 87045-TC; 87081-TC; 87086-TC; 88305-TC; 89055; 94799-TC; 97001-TC; 97116-TC; 97530-TC; A4606; J0692; J1650; J1956; J2405; J2704; J3370; J7030; J7040; J7050; J7060; P9016-BL; Z7610

== ENCOUNTER 2021-09-29 02:06 | Emergency (ER) | payer MEDICARE, OTHER ==
[~2021-09-29] VITALS: Ht 157.5 cm; Wt 70.8 kg
[~2021-09-29 02:06] MED LIST changes: +CLOP75TA15 PO; -CLOP75TA2 PO; +DICL100G16 TP; -DICL100G3 TP; -EZET10TA PO; +EZET10TA16 PO; -HYDR-3026 PO; +HYDR-500 PO; -IBAN150T PO; +IBAN150T16 PO; -ISOS60TA4 PO; +ISOS60TA72 PO; -OLOP2.5D EACHEYE; +OLOP2.5D12 EACHEYE; -OMEP20CA10 PO; +OMEP20CA15 PO; -QUET150T PO; +QUET150T2 PO; +RAME8TAB15 PO; -RAME8TAB9 PO; +SIMV-49 PO; -SIMV40TA5 PO
[2021-09-29 02:22] VITALS: BP 157/72
--- NOTE | 2021-09-29 02:25 | NUR ---
BIB SON FOR EVALUATION OF R HAND REDNESS DUE TO INFILTRATED IV . PT AWAKE AND ALTERT. RESP, EVEN AND NON LABORED ON ROOM AIR. AMBULATORY WITH STEADY STEADY GAIT.
[2021-09-29] MEDS ORDERED: CLIN300C12 PO (02:43)
--- NOTE | 2021-09-29 02:48 | NUR ---
Patient discharged to home in stable condition. Written and verbal after care instructions given. Patient verbalizes understanding of instruction. PT ambulatory with a steady gait
--- NOTE | 2021-09-29 02:49 | NUR ---
Patient discharged to home in stable condition. Written and verbal after care instructions given. Patient verbalizes understanding of instruction.
== END 2021-09-29 02:51 | disposition home or self-care (01) ==
LOC: ER 02:12
DX: I82.611 Acute embolism and thrombosis of superficial veins of right upper extremity (principal); I10 Essential (primary) hypertension; K21.9 Gastro-esophageal reflux disease without esophagitis; M19.90 Unspecified osteoarthritis, unspecified site; M79.7 Fibromyalgia; Z88.8 Allergy status to other drugs, medicaments and biological substances; Z79.899 Other long term (current) drug therapy

== ENCOUNTER 2022-08-11 18:37 | Emergency (ER) | payer MEDICARE, OTHER ==
[~2022-08-11] VITALS: Ht 160 cm; Wt 85.3 kg
[~2022-08-11 18:37] MED LIST changes: +CLIN300C12 PO
--- NOTE | 2022-08-11 18:44 | NUR ---
RECEVED PT 77 YRS FEMALE FROM HOME ACCOMPANY BY SON C/O COGHING NO DISTRESS
--- NOTE | 2022-08-11 19:05 | NUR ---
C RAY DONE AT BED SIDE
--- NOTE | 2022-08-11 19:29 | NUR ---
IV STARTED 22G R AC. BLOOD COLLECTED AND SENT TO LAB
[2022-08-11] MEDS ORDERED: CEFTRIAXONE 1GM BAG (ER ONLY) 1 GM/50 ML PIGGYBACK IV ONE (19:30)
[2022-08-11] MEDS ORDERED: methylPREDNISolone SOD SUCC 125 MG/2ML VIAL IV ONE (19:30)
[2022-08-11] MEDS ORDERED: ALBUTEROL FS 2.5 MG/3 ML VIAL.NEB CONTNEB ONE (19:30)
[2022-08-11] MEDS ORDERED: CEFTRIAXONE 1 G in IV D5W 50 ML IV SCH (19:30)
[2022-08-11] MEDS ORDERED: DOXYCYCLINE 100 MG in IV D5W 100 ML IV ONE (19:30)
[2022-08-11] MEDS ORDERED: IPRATROPIUM NEB FS 0.5 MG/2.5 ML AMPUL.NEB NEB ONE (19:30)
--- NOTE | 2022-08-11 19:30 | NUR ---
HAND OFF TYSON AMARO
[2022-08-11] MEDS ORDERED: ALBUTEROL FS 2.5 MG/3 ML VIAL.NEB ONE (19:48)
[2022-08-11 19:50] LABS: BASOPHILS % (AUTO) 0.5 % (0.0-2.0); EOSINOPHILS % (AUTO) 1.4 % (0.0-6.0); HEMATOCRIT 37 % (33-45); LYMPHOCYTES # (AUTO) 0.9 K/uL (0.8-4.8); LYMPHOCYTES % (AUTO) 19.9 % (20.0-44.0); MEAN CORPUSCULAR HGB CONC 32 g/dl (31.0-36.0); MEAN CORPUSCULAR VOLUME 87 fL (82-100); MONOCYTES # (AUTO) 0.4 K/uL (0.1-1.30); MONOCYTES % (AUTO) 9.9 % (2.0-12.0); NEUTROPHILS % (AUTO) 68.3 % (43.0-81.0); PLATELET COUNT (AUTO) 257 K/uL (150-450); RED BLOOD CELL COUNT(AUTO) 4.27 MIL/uL (4.0-5.2); WHITE BLOOD COUNT (AUTO) 4.4 K/uL (4.3-11.0)
--- NOTE | 2022-08-11 19:54 | NUR ---
COVID ANTIGEN COLLECTED SENT TO LAB
[2022-08-11 20:18] LABS: CALCIUM, SERUM 9.3 mg/dL (8.5-10.1); POTASSIUM 4.7 mmol/L (3.5-5.1)
[2022-08-11 20:45] LABS: ALBUMIN 3.5 g/dL (3.4-5.0); BILIRUBIN,DIRECT 0.1 mg/dL (0.0-0.2); BILIRUBIN,TOTAL 0.5 mg/dL (0.2-1.0); TOTAL PROTEIN, SERUM 7.7 g/dL (6.4-8.2)
[2022-08-11 20:49] LABS: BILIRUBIN,URINE NEGATIVE (NEGATIVE); COLOR,URINE YELLOW (YELLOW); LEUKOCYTE ESTERASE ,URINE NEGATIVE (NEGATIVE); NITRITE, URINE NEGATIVE (NEGATIVE); PROTEIN,URINE NEGATIVE (NEGATIVE); UGLUCOSE NEGATIVE (NEGATIVE); UROBILINOGEN,URINE 0.2 EU/dL (0.2)
[2022-08-11 20:59] LABS: BACTERIA,URINE None seen /HPF (None Seen); SQUAMOUS EPITHELIAL CELL,UR 0-2 /HPF (None Seen); WBC,URINE 0-2 /HPF (0-3)
[2022-08-11] MEDS ORDERED: IV NS 0.9% 1,000 ML IV ONE (21:00)
[2022-08-11] MEDS ORDERED: DOXY100T2 PO (21:01)
[2022-08-11] MEDS ORDERED: PRED50TA PO (21:01)
[2022-08-11] MEDS ORDERED: ALBU6.7H9 INH (21:01)
[2022-08-11 21:16] VITALS: BP 142/96
--- NOTE | 2022-08-11 21:16 | NUR ---
Patient discharged to home in stable condition. Written and verbal after care instructions given. Patient verbalizes understanding of instruction.IV removed. Catheter intact and site benign. Pressure and 4x4 applied to site. No bleeding noted.
--- NOTE | 2022-08-24 15:57 | NUR ---
LATE ENTRY:08/11/2022 DOXYCYCLINE 100 MG IVPB R AC 22G, START TIME 1929-END TIME 2029
== END 2022-08-11 21:20 | disposition home or self-care (01) ==
LOC: ER 18:50
DX: J06.9 Acute upper respiratory infection, unspecified (principal); J45.901 Unspecified asthma with (acute) exacerbation; I10 Essential (primary) hypertension; K21.9 Gastro-esophageal reflux disease without esophagitis; M19.90 Unspecified osteoarthritis, unspecified site; M79.7 Fibromyalgia; Z88.0 Allergy status to penicillin; Z88.8 Allergy status to other drugs, medicaments and biological substances; Z79.51 Long term (current) use of inhaled steroids; Z79.899 Other long term (current) drug therapy; Z20.822 Contact with and (suspected) exposure to COVID-19
CPT/HCPCS: 99285; 96365; 71045; 96375; 87426; 96368; 93005; 84145; 85025; 80048; 87086; 83605; 80076; 81001; 36415; 85730; 87040 ×2; 87081; 94640 ×2; J3490; J0696; J7060 ×2; C9803